=== PATIENT | female | born 1975 | race Caucasian/White ===

== ENCOUNTER → 2017-12-11 | Outpatient (CLI) | payer BC | LOC: M.RAD 16:40 | DX: R06.02 Shortness of breath (principal); R06.00 Dyspnea, unspecified ==

== ENCOUNTER → 2017-12-12 | Outpatient (CLI) | payer OTHER | LOC: M.CT 07:42 | DX: Z13.6 Encounter for screening for cardiovascular disorders (principal) ==

== ENCOUNTER → 2018-01-08 | Outpatient (CLI) | payer BC | LOC: M.CT 17:00 | DX: K76.0 Fatty (change of) liver, not elsewhere classified (principal) ==

== ENCOUNTER → 2018-01-24 | Outpatient (CLI) | payer BC | LOC: M.RAD 11:22 | DX: R05 Cough (principal) ==